=== PATIENT | male | born 1975 | race Caucasian/White ===

== ENCOUNTER 2018-05-16 19:35 | Emergency (ER) | payer OTHER ==
[~2018-05-16] VITALS: Ht 200.7 cm; Wt 85.0 kg
[2018-05-16 19:38] VITALS: RESP 18; Ht 200.7 cm; Wt 85.0 kg
[2018-05-16] MEDS ORDERED: DIAZEPAM 5 MG/ML SYG IV ONE (20:00)
[2018-05-16] MEDS ORDERED: LEVO50TA7 PO (20:39)
[2018-05-16] MEDS ORDERED: AMLO5TAB4 PO (20:40)
[2018-05-16] MEDS ORDERED: GABA300C16 PO (20:40)
[2018-05-16] MEDS ORDERED: DIPH25CA42 PO (20:40)
[2018-05-16] MEDS ORDERED: ESCI20TA38 PO (20:41)
[2018-05-16] MEDS ORDERED: OMEP20CA16 PO (20:41)
[2018-05-16] MEDS ORDERED: CARV6.2579 PO (20:41)
--- NOTE | 2018-05-16 21:17 | ERD ---
ER Documentation Chief Complaint Chief Complaint awoken by sudden onset RLE pain x2hrs, uncontolled pain, total numbness HPI 43-year-old male with no significant past medical history presenting with right medial knee pain. Patient states that he woke up this morning with the pain. It was intermittent throughout the day but progressively worsened. It was unbearable over the past 1 hour. He states that he feels like there is a spasm and he is unable to bend his knee due to the pain. The pain radiates from his medial knee down to his foot. He also complains of associated tingling in the area. He denies any recent injuries. He had a hernia surgery 1 week ago on the left side. He has not noted any swelling to the legs. He has never had this pain before. He describes the pain as sharp and stabbing, 10 out of 10, worse with movement and walking. No alleviating factors. ROS All systems reviewed and are negative except as per history of present illness. Medications Home Meds Active Scripts Ibuprofen* (Motrin*) 800 Mg Tab, 800 MG PO Q6H PRN for PAIN AND OR ELEVATED TEMP, #30 TAB Prov:CAROL SPENCE MD 05/16/18 Reported Medications Escitalopram Oxalate* (Escitalopram Oxalate*) 20 Mg Tablet, 20 MG PO DAILY, #30 TAB 05/16/18 Omeprazole* (Omeprazole*) 20 Mg Capsule.dr, 20 MG PO DAILY, #30 CAP 05/16/18 Carvedilol* (Carvedilol*) 6.25 Mg Tablet, 6.25 MG PO BID, #60 TAB 05/16/18 Gabapentin* (Gabapentin*) 300 Mg Capsule, 300 MG PO TID, #90 CAP 05/16/18 Amlodipine Besylate* (Norvasc*) 5 Mg Tablet, 5 MG PO DAILY, TAB 05/16/18 Diphenhydramine Hcl (Banophen) 25 Mg Capsule, 25 MG PO QID, CAP 05/16/18 Levothyroxine Sodium* (Levothyroxine Sodium*) 50 Mcg Tablet, 50 MCG PO BEFORE BREAKFAST, #30 TAB 05/16/18 Allergies Allergies: Coded Allergies: No Known Allergy (Unverified , 05/16/18) PMhx/Soc History of Surgery: Yes (Left inguinal hernia repair 1 week ago) Anesthesia Reaction: No Hx Neurological Disorder: No Hx Respiratory Disorders: No Hx Cardiac Disorders: Yes (Hypertension) Hx Psychiatric Problems: No Hx Miscellaneous Medical Probl: Yes (Hypothyroid) Hx Alcohol Use: No Hx Substance Use: No Hx Tobacco Use: No Smoking Status: Never smoker FmHx Family History: No diabetes Physical Exam Vitals Vital Signs Date Temp Pulse Resp B/P (MAP) Pulse Ox O2 O2 Flow FiO2 Time Delivery Rate 05/16/18 100.1 68 124/74 Room Air 22:48 (91) 05/16/18 99.5 87 18 124/79 100 19:38 (94) Physical Exam Const: In acute distress due to pain. Nontoxic Head: Atraumatic Neck: Full range of motion. No meningismus. Resp: No respiratory distress Cardio: Regular rate and rhythm, no murmurs Abd: Soft, non tender, non distended. Normal bowel sounds Skin: No petechiae or rashes Back: No midline or flank tenderness Right lower extremity: No obvious deformity. No ecchymosis. No edema. No laceration. Compartments soft.CR < 2 sec. Full AROM at hip. Difficulty ranging at the knee and ankle secondary to pain. Sensations grossly intact to painful stimuli. 2+ DP and PT pulses. Extremity warm to touch. No erythema. No joint swelling. Significant Tenderness to palpation of the medial aspect of the knee joint. No calf tenderness or thigh tenderness. Neur: Awake and alert Psych: Normal Mood and Affect Results 24 hrs Current Medications Medications Dose Sig/Christal Start Time Status Last (Trade) Ordered Route PRN Stop Time Admin Dose Reason Admin Diazepam 5 mg ONCE ONCE 05/16/18 DC 05/16/18 (Valium) IV 20:00 20:31 05/16/18 20:01 Morphine 6 mg ONCE ONCE 05/16/18 DC 05/16/18 Sulfate IV 21:30 21:35 (morphine) 05/16/18 21:31 Ketorolac 30 mg ONCE STAT 05/16/18 DC 05/16/18 Tromethamine IV 22:27 22:46 (Toradol) 05/16/18 22:28 Procedures/MDM EMERGENT LABS AND DIAGNOSTIC STUDIES: Radiology Results as interpreted by Radiology below were reviewed by Nadeen Spence MD: Venous ultrasound right lower extremity shows no evidence of DVT X-ray right knee shows evidence of mild CPPD in the medial meniscus. Possible metallic foreign bodies noted. Initial Nursing notes reviewed. Previous Medical Records requested via the Electronic Health Record. EMERGENCY DEPARTMENT COURSE / MEDICAL DECISION MAKING: Patient was initially treated with Valium for possible muscle spasm. He states that that actually helped for quite some time and then his pain returned. He was then treated with morphine without much relief. Subsequent to that, he was given Toradol. Venous ultrasound did show evidence of DVT but x-ray of the knee did show evidence of CPPD of the medial meniscus, which is where the patient is tender on exam. I suspect he has possible pseudogout. However there is no joint swelling on exam. I considered arterial dissection and ischemic limb. However the patient is neurovascularly intact on exam and I have a very low suspicion for these. no evidence of compartment syndrome. No evidence of acute fracture or dislocation. I recommended treatment outpatient with NSAIDs and nonweightbearing until he is feeling better. I asked him to call his primary care doctor tomorrow to get a referral to an orthopedist. If any of his symptoms are to worsen, he was encouraged to return to the ER. Crutches were provided. Patient's blood pressure was elevated (>120/80) but appears stable without evidence of hypertensive emergency or urgency. The patient was counseled about the risks of hypertension and urged to pursue outpatient monitoring and therapy within a week with their primary care physician. 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
[2018-05-16] MEDS ORDERED: morphine 10 MG INJ IV ONE (21:30)
[2018-05-16] MEDS ORDERED: KETOROLAC 30 MG INJ IV STA (22:27)
[2018-05-16] MEDS ORDERED: IBUP800T48 PO (22:31)
[2018-05-16 22:48] VITALS: BP 124/74; PULSE 68
== END 2018-05-16 23:26 | disposition home or self-care (01) ==
LOC: E/R 19:35
DX: R53.1 Weakness (principal); R51 Headache; Z87.891 Personal history of nicotine dependence
CPT/HCPCS: 73562; 93971; J1885; J2270; J3360; Z7502